=== PATIENT | male | born 2000 | race Caucasian/White ===

== ENCOUNTER 2018-07-21 12:03 | Emergency (ER) | payer BC, OTHER ==
[~2018-07-21] VITALS: Ht 172.7 cm; Wt 93.1 kg
[2018-07-21 12:09] VITALS: BP 142/71
--- NOTE | 2018-07-21 13:11 | NUR ---
PT AMBULATED TO BED 02.
--- NOTE | 2018-07-21 13:15 | NUR ---
17Y/M BIB FRIEND WITH C/O DRY COUGH X 1 WEEK, PT REPORTS CHILLS/PRAJAPATI, REPORTS X5 EPISODES OF VOMITING, AFRIBILE AT THIS TIME, ASM LUNG SOUNDS CLEAR, PT IS AAOX4, VSS AT THIS TIME, BED DOWN, BEDRAIL UP X 1, ER MD AWARE AND NOTIFIED OF PT STATUS. NO PMH NKA
--- NOTE | 2018-07-21 14:23 | NUR ---
Patient being evaluated by physician at bedside.
[2018-07-21] MEDS ORDERED: FAMOTIDINE 20 MG TAB PO ONE (14:25)
[2018-07-21] MEDS ORDERED: PROMETHAZINE 25 MG/ML VIAL IM ONE (14:25)
[2018-07-21 17:41] VITALS: BP 133/73
--- NOTE | 2018-07-21 17:41 | NUR ---
Patient discharged with v/s stable. Written and verbal after care instructions given and explained. Patient alert, oriented and verbalized understanding of instructions. Ambulatory with steady gait. All questions addressed prior to discharge. ID band removed. Patient advised to follow up with PMD. Rx of phenergan given. Patient educated on indication of medication including possible reaction and side effects. Opportunity to ask questions provided and answered.
--- NOTE | 2018-07-21 17:42 | NUR ---
Rosmery jimenes in [facility] - 07/21/18 at 1743 by SAHARA pt is up in be with family at bedside, vss at this time
== END 2018-07-21 17:41 | disposition home or self-care (01) ==
LOC: MED 12:03
DX: R05 Cough (principal); R11.10 Vomiting, unspecified; R68.83 Chills (without fever)
CPT/HCPCS: 87804; 96372; 99283; J2550

== ENCOUNTER 2021-10-02 20:23 | Emergency (ER) | payer BC, OTHER ==
[~2021-10-02] VITALS: Ht 177.8 cm; Wt 103.9 kg
[2021-10-02 20:33] VITALS: BP 127/105
[2021-10-02 22:16] LABS: BASOPHILS # (AUTO) 0.1 K/uL (0.00-0.22); EOSINOPHILS # (AUTO) 0.1 K/uL (0-0.4); EOSINOPHILS % (AUTO) 1.3 % (0.0-4.0); HEMATOCRIT 45.1 % (36-52); HEMOGLOBIN 15.7 g/dL (12.0-18.0); LYMPHOCYTES % (AUTO) 13.2 % (20.5-51.1); MEAN CORPUSCULAR HEMOGLOBIN 30 pg (27-31); MEAN CORPUSCULAR HGB CONC 35 g/dL (33-37); MEAN CORPUSCULAR VOLUME 87.1 fL (80-94); MONOCYTES # (AUTO) 0.5 K/uL (0.8-1.0); MONOCYTES % (AUTO) 6.9 % (1.7-9.3); NEUTROPHILS # (AUTO) 6.1 K/uL (1.8-7.7); NEUTROPHILS % (AUTO) 77.6 % (42.2-75.2); PLATELET COUNT (AUTO) 197 K/uL (140-450); RED BLOOD CELL COUNT(AUTO) 5.18 MIL/uL (4.20-6.10); RED CELL DISTRIBUTION WIDTH 12.7 % (11.6-13.7); WHITE BLOOD COUNT (AUTO) 7.9 K/uL (4.8-10.8)
[2021-10-02 22:52] LABS: ALBUMIN 4.4 g/dL (3.4-5.0); ANION GAP 11.6 (8-16); CARBON DIOXIDE 28.1 mmol/L (21-32); CREATININE 1.1 mg/dL (0.6-1.3); POTASSIUM 3.7 mmol/L (3.5-5.1); TOTAL BILIRUBIN 1.4 mg/dL (0.0-1.0)
[2021-10-02 23:17] VITALS: BP 131/76
[2021-10-02] MEDS ORDERED: ONDA-188 SL (23:27)
[2021-10-02] MEDS ORDERED: ONDANSETRON 4 MG ODT PO ONE (23:30)
--- NOTE | 2021-10-02 23:34 | NUR ---
BROUGHT TO CHAIR C
== END 2021-10-03 00:16 | disposition home or self-care (01) ==
LOC: MED 20:23
DX: R11.2 Nausea with vomiting, unspecified (principal); R50.9 Fever, unspecified; R74.01 Elevation of levels of liver transaminase levels; Z79.899 Other long term (current) drug therapy
CPT/HCPCS: 36415; 80053; 83690; 85025; 99283; Q0162